=== PATIENT | male | born 1995 | race Caucasian/White ===

== ENCOUNTER 2017-11-27 10:14 | Emergency (ER) | payer OTHER ==
[~2017-11-27] VITALS: Ht 177.8 cm; Wt 66.0 kg
[2017-11-27 10:22] VITALS: BP 140/75; PULSE 90; RESP 16; TEMP 97.5; O2SAT 98
[2017-11-27] MEDS ORDERED: KEPP10002 PO (10:35)
[2017-11-27] MEDS ORDERED: diphenhydrAMINE HCL 50 MG/ML VIAL IVP ONE (10:45)
[2017-11-27] MEDS ORDERED: PROCHLORPERAZINE INJ 10 MG/2 ML VIAL IVP ONE (10:45)
[2017-11-27] MEDS ORDERED: SODIUM CHLORIDE 0.9% FLUSH 10 ML FLUSH IVF PRN (10:45)
--- NOTE | 2017-11-27 10:49 | PD ---
HPI Chief Complaint: Headache Time Seen by Provider: 10:31 Travel History International Travel<30 days: No Contact w/Intl Traveler<30days: No Traveled to known affect area: No History of Present Illness HPI This is a 22-year-old male with no past medical history, presents here today with complaints of headache times several days. Patient states that he has got bitemporal headache and posterior auricular pain. He reports the pain as sharp and unrelenting. He has no history of previous headaches. Patient states that he was seen at his [facility] yesterday and was told to take aspirin. He states that despite taking aspirin, and the headache has not gotten better. He states he was up all night last night with a headache. He denies any stiff neck. He denies any fevers, chills. He does have a history of having a seizure 1 episode. He states that he was placed on Keppra for that. He states he has not had a seizure since. There is no reported seizures. There are no other complaints at time of my examination. PFSH Past Medical History Diminished Hearing: No Immunizations Current: Yes Seizures: Yes Social History Alcohol Use: Yes (rare) Tobacco Use: No Substance Use: No Allergies-Medications (Allergen,Severity, Reaction): Coded Allergies: No Known Allergies (Verified Allergy, Unknown, 11/27/17) Reported Meds & Prescriptions Reported Meds & Active Scripts Active Prochlorperazine Maleate 10 Mg Tab 10 Mg PO Q6H PRN Reported Keppra (Levetiracetam) 1,000 Mg Tab 1,000 Mg PO BID Review of Systems Except as stated in HPI: all other systems reviewed are Neg General / Constitutional: No: Fever Eyes: Positive: Blurred Vision (Earlier, none now) HENT: Positive: Headaches, No: Lightheadedness, Neck Stiffness, Neck Pain Cardiovascular: No: Chest Pain or Discomfort, Palpitations Respiratory: No: Cough, Shortness of Breath Gastrointestinal: No: Nausea, Vomiting, Abdominal Pain Genitourinary: No: Dysuria, Incontinence Musculoskeletal: No: Weakness, Pain Neurologic: Positive: Headache, No: Weakness, Dizziness, Coordination Problem, Ataxia, Paresthesia, Incontinence, Sensory Disturbance Psychiatric: No: Anxiety, Disorder of Thought Physical Exam Narrative GENERAL: Well-developed well-nourished male, in no acute respiratory distress. SKIN: Focused skin assessment warm/dry. HEAD: Atraumatic. Normocephalic. EYES: Pupils equal and round. Extraocular muscles were intact. No scleral icterus. No injection or drainage. Subjective temporal location of the pain. No palpable temporal artery. ENT: No nasal bleeding or discharge. Mucous membranes pink and moist. NECK: Trachea midline. Supple. CARDIOVASCULAR: Regular rate and rhythm. No murmur appreciated. RESPIRATORY: No accessory muscle use. Clear to auscultation. Breath sounds equal bilaterally. GASTROINTESTINAL: Abdomen soft, non-tender, nondistended. Hepatic and splenic margins not palpable. MUSCULOSKELETAL: No obvious deformities. No clubbing. No cyanosis. No edema. NEUROLOGICAL: Awake and alert. No obvious cranial nerve deficits. Motor grossly within normal limits. Normal speech. PSYCHIATRIC: Appropriate mood and affect; insight and judgment normal. Data Data Last Documented VS Vital Signs Date Time Temp Pulse Resp B/P (MAP) Pulse Ox O2 Delivery O2 Flow Rate FiO2 11/27/17 10:22 97.5 90 16 140/75 (96) 98 Orders Orders Complete Blood Count With Diff (11/27/17 10:40) Basic Metabolic Panel (Bmp) (11/27/17 10:40) Westergren Sedimentation Rate (11/27/17 10:40) Prothrombin Time / Inr (Pt) (11/27/17 10:40) Act Partial Throm Time (Ptt) (11/27/17 10:40) Ct Brain W/O Iv Contrast(Rout) (11/27/17 10:40) Ecg Monitoring (11/27/17 10:40) Iv Access Insert/Monitor (11/27/17 10:40) Oximetry (11/27/17 10:40) Sodium Chloride 0.9% Flush (Ns Flush) (11/27/17 10:45) Prochlorperazine Inj (Compazine Inj) (11/27/17 10:45) Diphenhydramine Inj (Benadryl Inj) (11/27/17 10:45) Sodium Chlor 0.9% 1000 Ml Inj (Ns 1000 M (11/27/17 11:30) Labs Laboratory Tests Test 11/27/17 10:55 Prothrombin Time 10.9 SEC Prothromb Time International Ratio 1.1 RATIO Activated Partial Thromboplast Time 26.4 SEC Blood Urea Nitrogen 9 MG/DL Creatinine 0.85 MG/DL Random Glucose 107 MG/DL Calcium Level 9.1 MG/DL Sodium Level 139 MEQ/L Potassium Level 3.6 MEQ/L Chloride Level 103 MEQ/L Carbon Dioxide Level 28.6 MEQ/L Anion Gap 7 MEQ/L Estimat Glomerular Filtration Rate 114 ML/MIN MDM Medical Decision Making Medical Screen Exam Complete: Yes Emergency Medical Condition: Yes Differential Diagnosis Migraine variant versus intracranial structural abnormality versus subarachnoid hemorrhage Narrative Course 22-year-old male with no past medical history, presents today with complaints of headache. Patient states that that he has had no previous headaches before. He was seen at the [facility] at [facility] yesterday was told to take aspirin. He states the aspirin did not help. The patient was given 1 L of IV fluid followed by 10 mg of Compazine and 25 mg of Benadryl. He states his headache is completely resolved. I have offered him a lumbar puncture for completeness however he has declined. Head CT was negative for acute process. He is instructed to follow-up if his headache returns. He will be given the on- call neurologist number. Diagnosis Primary Impression: Cephalgia Additional Impression: History of seizure disorder Additional Instructions: Return if symptoms recur. Follow-up with neurologist. Med/Other Pt SpecificInfo: Prescription(s) given Scripts Prochlorperazine Maleate (Prochlorperazine Maleate) 10 Mg Tab 10 MG PO Q6H Y for NAUSEA OR VOMITING, #20 TAB 0 Refills Prov: Josiah Hendrickson MD 11/27/17 Disposition: 01 DISCHARGE HOME Condition: Stable Josiah Hendrickson MD Nov 27, 2017 10:49
--- NOTE | 2017-11-27 11:13 | RADRPT ---
EXAM DATE/TIME: 11/27/2017 11:02 [facility] COMPARISON: No previous studies available for comparison. INDICATIONS : Pain behind left eye since Thursday, loss of balance. RADIATION DOSE: 36.33 CTDIvol (mGy) MEDICAL HISTORY : Seizures. SURGICAL HISTORY : None. ENCOUNTER: Initial ACUITY: 3 days PAIN SCALE: 5/10 LOCATION: Left cranial TECHNIQUE: Multiple contiguous axial images were obtained of the head. Using automated exposure control and adj ustment of the mA and/or kV according to patient size, radiation dose was kept as low as reasonably a chievable to obtain optimal diagnostic quality images. DICOM format image data is available electro nically for review and comparison. FINDINGS: CEREBRUM: The ventricles are normal for age. No evidence of midline shift, mass lesion, hemorrhage or acute in farction. No extra-axial fluid collections are seen. POSTERIOR FOSSA: The cerebellum and brainstem are intact. The 4th ventricle is midline. The cerebellopontine angle i s unremarkable. EXTRACRANIAL: The visualized portion of the orbits is intact. SKULL: The calvaria is intact. No evidence of skull fracture. CONCLUSION: Negative noncontrast head CT Doug Argueta MD on November 27, 2017 at 11:09 Board Certified Radiologist. This report was verified electronically.
[2017-11-27] MEDS ORDERED: SODIUM CHLOR 0.9% 1000 ML INJ 1,000 ML IV ONE (11:30)
[2017-11-27 11:51] LABS: INTERNATIONAL NORMALIZED RATIO 1.1 RATIO; PROTHROMBIN TIME - PATIENT 10.9 SEC (9.8-11.6)
[2017-11-27 12:01] LABS: BICARBONATE 28.6 MEQ/L (21.0-32.0); CALCIUM 9.1 MG/DL (8.5-10.1); CREATININE 0.85 MG/DL (0.60-1.30)
[2017-11-27] MEDS ORDERED: PROC10TA PO (12:04)
[2017-11-27 13:48] LABS: AUTOMATED NEUTROPHIL # 5.3 TH/MM3 (1.8-7.7); BASOPHIL % 0.2 % (0.0-2.0); EOSINOPHIL % 0.7 % (0.0-4.0); HEMATOCRIT 40.3 % (39.0-51.0); HEMOGLOBIN 13.8 GM/DL (13.0-17.0); LYMPH % 16.3 % (9.0-44.0); LYMPHOCYTE # 1.2 TH/MM3 (1.0-4.8); MEAN CELL VOLUME 79.3 FL (80.0-100.0); MEAN CORPUSCULAR HEMOGLOBIN 27.2 PG (27.0-34.0); MEAN CORPUSCULAR HGB CONC 34.3 % (32.0-36.0); MEAN PLATELET VOLUME 10.9 FL (7.0-11.0); MONO % 8.6 % (0.0-8.0); MONOCYTE # 0.6 TH/MM3 (0-0.9); NEUT % 74.2 % (16.0-70.0); PLATELET COUNT 158 TH/MM3 (150-450); RED BLOOD COUNT 5.08 MIL/MM3 (4.50-5.90); RED CELL DISTRIBUTION WIDTH 12.7 % (11.6-17.2); WHITE BLOOD COUNT 7.2 TH/MM3 (4.0-11.0)
== END 2017-11-27 12:34 | disposition home or self-care (01) ==
LOC: NEPE 10:14
DX: R51 Headache (principal); G40.909 Epilepsy, unspecified, not intractable, without status epilepticus
CPT/HCPCS: 70450; 80048; 85025; 85610; 85652; 85730; 96374; 96375; 99284; J0780; J1200; J7030